=== PATIENT | female | born 1955 | race Caucasian/White ===

== ENCOUNTER 2018-12-22 22:15 | Emergency (ER) | payer OTHER ==
[~2018-12-22] VITALS: Ht 160 cm; Wt 102.1 kg
[2018-12-22] MEDS ORDERED: LIDOCAINE HCL/MPF 1% 30 ML VIAL IJ ONE (23:43)
[2018-12-23] MEDS ORDERED: LIDOCAINE HCL/PF 1% 30 ML VIAL IM ONE (00:30)
--- NOTE | 2018-12-23 00:54 | NUR ---
CALLED CALL THE [facility] FOR TRANSP[facility]ATION, ETA [phone]. REF #[id number]
--- NOTE | 2018-12-23 01:03 | NUR ---
PT REFUSING [facility]SPORTATION AND REQUESTING FOR [facility]. 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
--- NOTE | 2018-12-23 01:19 | NUR ---
Patient discharged to home in stable condition. Written and verbal after care instructions given. Patient verbalizes understanding of instruction.
--- NOTE | 2018-12-23 01:26 | NUR ---
PT ASSISTED TO [facility] VIA WHEELCHAIR. FAMILY MEMBER WITH BEDSIDE
[2018-12-23 02:12] VITALS: BP 123/61
== END 2018-12-23 01:26 | disposition home or self-care (01) ==
LOC: ER 22:17
DX: T81.31XA Disruption of external operation (surgical) wound, not elsewhere classified, initial encounter (principal); S81.812A Laceration without foreign body, left lower leg, initial encounter; I10 Essential (primary) hypertension; E11.9 Type 2 diabetes mellitus without complications; Z95.1 Presence of aortocoronary bypass graft; Z85.42 Personal history of malignant neoplasm of other parts of uterus; X58.XXXA Exposure to other specified factors, initial encounter; Y93.89 Activity, other specified; Y92.89 Other specified places as the place of occurrence of the external cause; Y99.8 Other external cause status
CPT/HCPCS: 12002; 99283; A6403; J3490 ×2